=== PATIENT | female | born 1965 | race African-American/Black ===

== ENCOUNTER 2017-02-03 15:20 | Emergency (ER) | payer SELFPAY ==
[~2017-02-03] VITALS: Ht 157.5 cm; Wt 84.1 kg
[2017-02-03 17:43] VITALS: BP 166/106
[2017-02-03] MEDS ORDERED: ACETAMINOPHEN WITH CODEINE 300/30MG TABLET PO ONE (19:00)
== END 2017-02-03 20:24 | disposition home or self-care (01) ==
LOC: ER 18:55
DX: S30.1XXA Contusion of abdominal wall, initial encounter (principal); E11.9 Type 2 diabetes mellitus without complications; I10 Essential (primary) hypertension; Z91.041 Radiographic dye allergy status; Z91.010 Allergy to peanuts; Z91.013 Allergy to seafood; Z91.018 Allergy to other foods; W01.198A Fall on same level from slipping, tripping and stumbling with subsequent striking against other object, initial encounter; Y93.E1 Activity, personal bathing and showering; Y92.012 Bathroom of single-family (private) house as the place of occurrence of the external cause
CPT/HCPCS: 71101; 99284

== ENCOUNTER 2017-02-12 15:30 | Emergency (ER) | payer MEDICAID, OTHER ==
[~2017-02-12] VITALS: Ht 157.5 cm; Wt 82.0 kg
[2017-02-12 16:06] VITALS: BP 154/112
[2017-02-12 20:06] LABS: BASOPHILS % 1.4 % (0.0-2.0); EOSINOPHILS % 0.6 % (0.0-5.0); HEMATOCRIT. 39.2 % (36.0-48.0); HEMOGLOBIN. 13.6 g/dL (12.0-16.0); LYMPHOCYTES % 52.9 % (20.0-50.0); MEAN CORPUSCULAR HEMOGLOBIN 31.2 pg (28.0-32.0); MEAN CORPUSCULAR HGB CONC 34.6 g/dL (31.0-37.0); MEAN CORPUSCULAR VOLUME 90.1 fL (81.0-99.0); MEAN PLATELET VOLUME 7.9 fl (7.4-10.4); MONOCYTES % 5.5 % (2.0-8.0); NEUTROPHILS % 39.6 % (40.0-76.0); PLATELET 313 x1000/uL (130-400); RED BLOOD CELL COUNT 4.35 mill/uL (4.2-5.4); WHITE BLOOD COUNT 9.7 x1000/uL (4.5-11.0)
[2017-02-12 20:10] LABS: CHLORIDE 95 mEq/L (98-107); INDEX HEMOLYSI 1 (1-3); INDEX ICTERIC 1 (1-4); INDEX LIPEMIC 1 (1-3); PROTHROMBIN TIME 10.7 sec
[2017-02-12 20:17] LABS: ALANINE AMINOTRANSFERASE 25 IU/L (13-61); ALBUMIN 3.5 g/dL (3.4-5.0); ANION GAP 15; CALCIUM 8.9 mg/dL (8.5-10.1); CARBON DIOXIDE 28 mEq/L (21-32); UREA NITROGEN BLOOD 12 mg/dL (7-21); eGFR > 60 mL/min (>60)
== END 2017-02-12 20:43 | disposition home or self-care (01) ==
LOC: ER 17:10
DX: R10.9 Unspecified abdominal pain (principal); I10 Essential (primary) hypertension; E11.9 Type 2 diabetes mellitus without complications; Z91.041 Radiographic dye allergy status; Z91.010 Allergy to peanuts; Z91.013 Allergy to seafood; Z91.018 Allergy to other foods
CPT/HCPCS: 36415; 71101; 76705; 80053; 85025; 85610; 99285

== ENCOUNTER 2018-06-30 13:09 | Inpatient (IN) | payer MEDICAID, OTHER ==
[~2018-06-30] VITALS: Ht 157.5 cm; Wt 75.7 kg
[2018-06-30] MEDS ORDERED: DIPHENHYDRAMINE 50MG/ML VIAL IV ONE (13:30)
[2018-06-30] MEDS ORDERED: SODIUM CHLORIDE 0.9% 1000ML BAG (SEPSIS BOLUS) IV ONE (13:30)
[2018-06-30] MEDS ORDERED: FAMOTIDINE 20MG/2ML VIAL IV ONE (13:30)
[2018-06-30] MEDS ORDERED: METHYLPREDNISOLONE SOD SUCC 125 MG/2 ML VIAL IV ONE (13:30)
[2018-06-30 14:42] LABS: BASOPHILS % 0.3 % (0.0-2.0); EOSINOPHILS % 0.2 % (0.0-5.0); HEMATOCRIT. 40.4 % (36.0-48.0); HEMOGLOBIN. 13.6 g/dL (12.0-16.0); LYMPHOCYTES % 48.3 % (20.0-50.0); MEAN CORPUSCULAR HEMOGLOBIN 30.8 pg (28.0-32.0); MEAN CORPUSCULAR VOLUME 91.5 fL (81.0-99.0); MEAN PLATELET VOLUME 8.1 fl (7.4-10.4); MONOCYTES % 6.9 % (2.0-8.0); NEUTROPHILS % 44.3 % (40.0-76.0); PLATELET 377 x1000/uL (130-400); RED BLOOD CELL COUNT 4.42 mill/uL (4.2-5.4); RED CELL DISTRIBUTION WIDTH 14.2 % (11.6-14.6)
[2018-06-30 14:47] LABS: CHLORIDE 101 mEq/L (98-107)
[2018-06-30 14:59] LABS: INR 1.1; PARTIAL THROMBOPLASTIN TIME 23.2 sec (23.4-31.0); PROTHROMBIN TIME 10.6 sec (9.1-11.1)
[2018-06-30] MEDS ORDERED: LEVOFLOXACIN 750MG PREMIX 150 ML IV ONE (16:30)
[2018-06-30] MEDS ORDERED: POTASSIUM CHLORIDE 20MEQ TABLET SR PO ONE (16:30)
[2018-06-30 17:44] LABS: CLARITY URINE CLOUDY (CLEAR); COLOR URINE YELLOW (YELLOW); KETONES URINE NEGATIVE (NEGATIVE); LEUKOCYTE ESTERASE URINE 2+ (NEGATIVE); NITRITE URINE NEGATIVE (NEGATIVE); OCCULT BLOOD URINE TRACE (NEGATIVE); PROTEIN URINE NEGATIVE (NEGATIVE); SPECIFIC GRAVITY URINE 1.016 (1.005-1.030); UROBILINOGEN URINE 0.2 E.U./dL (0.2-1.0)
[2018-06-30 20:00] VITALS: BP 125/77
[2018-06-30] MEDS ORDERED: SEMA0.25 SQ (20:25)
[2018-06-30] MEDS ORDERED: INSU100I22 SQ (20:25)
[2018-06-30] MEDS ORDERED: BENA20TA10 PO (20:25)
[2018-06-30] MEDS ORDERED: ACETAMINOPHEN 325MG TABLET PO PRN (21:45)
[2018-06-30] MEDS ORDERED: DIPHENHYDRAMINE 50MG/ML VIAL IV PRN (21:45)
[2018-06-30] MEDS ORDERED: IPRATROPIUM/ALBUTEROL 0.5-3(2.5)MG/3ML NEB INH PRN (21:45)
[2018-06-30] MEDS ORDERED: CLONIDINE 0.1MG TABLET PO PRN (21:45)
[2018-06-30] MEDS ORDERED: METHYLPREDNISOLONE SOD SUCC 125 MG/2 ML VIAL IV SCH (22:00)
[2018-06-30] MEDS: SODIUM CHLORIDE 0.9% 1,000 ML IV SCH (22:07)
[2018-06-30] MEDS: SODIUM CHLORIDE 0.9% INJ 3ML FLUSH IVF SCH (22:07)
[2018-07-01] VITALS: BP 114/86
[2018-07-01 00:07] VITALS: BP 125/77
[2018-07-01] MEDS ORDERED: DEXTROSE 50% WATER 50ML SYRINGE IV PRN ×2 (02:00→08:00)
[2018-07-01 04:00] VITALS: BP 132/84
[2018-07-01] MEDS: SODIUM CHLORIDE 0.9% INJ 3ML FLUSH IVF SCH (05:01)
[2018-07-01] MEDS ORDERED: BLOOD SUGAR DIAGNOSTIC STRIP TEST SCH ×2 (07:20→12:20)
[2018-07-01] MEDS: SODIUM CHLORIDE 0.9% 1,000 ML IV SCH (07:45)
[2018-07-01 08:00] VITALS: BP 142/75
[2018-07-01] MEDS ORDERED: POTASSIUM CHLORIDE 20MEQ TABLET SR PO NR ×2 (08:00→11:00)
[2018-07-01] MEDS ORDERED: INSULIN LISPRO 100 UNITS/ML SUBCUT SCH (08:00)
[2018-07-01] MEDS ORDERED: FAMOTIDINE 20MG/2ML VIAL IV SCH (09:00)
[2018-07-01] MEDS ORDERED: INSULIN GLARGINE UD 100 UNITS/ML SYR SUBCUT SCH (10:00)
== END 2018-07-01 09:45 | disposition home or self-care (01) | DRG 916 ==
LOC: ER 13:09 → 6WST 16:35 → ENRESERV 17:03
PROVIDERS: ADMIT Internal Medicine; ATTEND Internal Medicine
DX: T78.3XXA Angioneurotic edema, initial encounter (principal); E11.9 Type 2 diabetes mellitus without complications; E87.6 Hypokalemia; I10 Essential (primary) hypertension; Z82.49 Family history of ischemic heart disease and other diseases of the circulatory system; Z79.899 Other long term (current) drug therapy; Z91.041 Radiographic dye allergy status; Z91.010 Allergy to peanuts; Z91.013 Allergy to seafood; Z91.018 Allergy to other foods; Z79.4 Long term (current) use of insulin
CPT/HCPCS: 36415; 71045; 80053; 81003; 82962; 83605; 83880; 84484; 85025; 85610; 85730; 86850; 86900; 87040; 87086; 93005; 96361; 96374; 96375; 99291; J1200; J1815; J1956; J2930; J3490; J7030

== ENCOUNTER 2019-09-29 02:26 | Emergency (ER) | payer OTHER ==
[~2019-09-29] VITALS: Ht 154.9 cm; Wt 82.0 kg
[~2019-09-29 02:26] MED LIST: INSU100I22 SQ; SEMA0.25 SQ
[2019-09-29] MEDS ORDERED: IBUPROFEN 600MG TABLET PO ONE (04:15)
[2019-09-29 05:17] VITALS: BP 135/77
== END 2019-09-29 05:30 | disposition home or self-care (01) ==
LOC: ER 02:26
DX: S09.8XXA Other specified injuries of head, initial encounter (principal); S63.615A Unspecified sprain of left ring finger, initial encounter; E11.9 Type 2 diabetes mellitus without complications; I10 Essential (primary) hypertension; W11.XXXA Fall on and from ladder, initial encounter; Y93.9 Activity, unspecified; Y92.9 Unspecified place or not applicable; Z88.8 Allergy status to other drugs, medicaments and biological substances; Z91.010 Allergy to peanuts; Z91.013 Allergy to seafood; Z91.018 Allergy to other foods
CPT/HCPCS: 73140; 99283

== ENCOUNTER 2022-06-16 14:03 | Emergency (ER) | payer OTHER ==
[~2022-06-16] VITALS: Ht 157.5 cm; Wt 82.0 kg
[2022-06-16] MEDS ORDERED: IBUPROFEN 600MG TABLET PO STA (14:47)
[2022-06-16 15:08] VITALS: BP 98/69
[2022-06-16] MEDS ORDERED: NAPR-681 PO (16:42)
== END 2022-06-16 17:13 | disposition home or self-care (01) ==
LOC: ER 14:20
DX: S16.1XXA Strain of muscle, fascia and tendon at neck level, initial encounter (principal); V49.49XA Driver injured in collision with other motor vehicles in traffic accident, initial encounter; Y93.89 Activity, other specified; Y92.89 Other specified places as the place of occurrence of the external cause; Y99.8 Other external cause status; M25.512 Pain in left shoulder
CPT/HCPCS: 72110; 73030; 99284